=== PATIENT | male | born 1995 | race American Indian/Alaskan Native ===

== ENCOUNTER 2019-11-20 13:19 | Emergency (ER) | payer SELFPAY ==
[2019-11-20 13:37] VITALS: BP 154/76
[2019-11-20] MEDS ORDERED: HYOSCYAMINE SUBL 0.125 MG TAB SL ONE (14:16)
[2019-11-20] MEDS ORDERED: ONDANSETRON 4 MG ODT TAB PO STA (14:16)
[2019-11-20] MEDS ORDERED: ALUM-MAG HYDROXIDE-SIMETHICONE 200-200-20MG/5ML ORAL LIQD 30 ML PO STA (14:16)
[2019-11-20 14:37] LABS: Basophils % (Auto) 0.1 % (0.0-1.8); Hematocrit 46.5 % (35.5-45.6); Hemoglobin 15.3 gm/dl (11.8-15.2); Lymphocytes # (Auto) 0.6 K/mm3 (1.2-5.4); Mean Corpuscular HGB Conc 33 % (32-34); Mean Corpuscular Volume 94 fl (84-94); Monocytes # (Auto) 0.5 K/mm3 (0.0-0.8); Monocytes % (Auto) 5.4 % (0.0-7.3); Platelet Count 152 K/mm3 (140-440); Red Blood Count 4.97 M/mm3 (3.65-5.03); Red Cell Distribution Width 14.4 % (13.2-15.2)
[2019-11-20 15:00] LABS: Alanine Aminotransferase 56 units/L (7-56); Albumin 4.7 g/dL (3.9-5); BUN/Creatinine Ratio 14; Blood Urea Nitrogen 14 mg/dL (9-20); Calcium 10.1 mg/dL (8.4-10.2); Hemolysis Index 51
--- NOTE | 2019-11-20 15:04 | Emergency Department Report ---
ED Abdominal Pain HPI - General Chief Complaint: Abdominal Pain Stated Complaint: N/V/ABD PAIN Time Seen by Provider: 11/20/19 14:16 Source: patient, EMS Mode of arrival: Wheelchair Limitations: No Limitations - History of Present Illness Initial Comments: 24-year-old [place] male presents emergency department complaining of generalized abdominal pain that radiates to the lower portion of the of the of the abdomen associated with some nausea and crampiness which began after he ate at a seafood despite having shellfish/crabs. States there is been no vomiting or or diarrhea but excessive nausea and cramping. Reports no fever, chills, sweats no chest pain or palpitation no hemoptysis no hematemesis no hematochezia reports no trauma. No pre-existing abdominal issues no previous surgeries. No dysuria no hematuria MD Complaint: abdominal pain Severity: mild, moderate Consistency: constant Improves With: nothing Context: possible food poisoning Associated Symptoms: nausea - Related Data Previous Rx's Medication Instructions Recorded Last Taken Type Famotidine [Pepcid] 40 mg PO DAILY #14 tablet 11/20/19 Unknown Rx Hyoscyamine Subl [Levsin Sl 0.125 0.125 mg SL Q6HR PRN #20 tab 11/20/19 Unknown Rx TAB] Nitrofurantoin Baraga/M-Cryst 100 mg PO Q12HR #14 capsule 11/20/19 Unknown Rx [Macrobid CAP] Ondansetron [Zofran ODT TAB] 8 mg PO Q12HR #14 tab.rapdis 11/20/19 Unknown Rx Allergies Allergy/AdvReac Type Severity Reaction Status Date / Time No Known Allergies Allergy Unverified 11/20/19 13:33 ED Review of Systems ROS: Stated complaint: N/V/ABD PAIN Other details as noted in HPI Comment: All other systems reviewed and negative ED Past Medical Hx - Past Medical History Previous Medical History?: No - Surgical History Past Surgical History?: No - Social History Smoking Status: Current Every Day Smoker Substance Use Type: None - Medications Home Medications: Home Medications Medication Instructions Recorded Confirmed Last Taken Type Famotidine [Pepcid] 40 mg PO DAILY #14 tablet 11/20/19 Unknown Rx Hyoscyamine Subl [Levsin Sl 0.125 0.125 mg SL Q6HR PRN #20 tab 11/20/19 Unknown Rx TAB] Nitrofurantoin Baraga/M-Cryst 100 mg PO Q12HR #14 capsule 11/20/19 Unknown Rx [Macrobid CAP] Ondansetron [Zofran ODT TAB] 8 mg PO Q12HR #14 tab.rapdis 11/20/19 Unknown Rx ED Physical Exam - General Limitations: No Limitations General appearance: alert, in no apparent distress - Head Head exam: Present: atraumatic, normocephalic - Eye Eye exam: Present: normal appearance - ENT ENT exam: Present: mucous membranes moist - Neck Neck exam: Present: normal inspection - Respiratory Respiratory exam: Present: normal lung sounds bilaterally. Absent: respiratory distress - Cardiovascular Cardiovascular Exam: Present: regular rate, normal rhythm. Absent: systolic murmur, diastolic murmur, rubs, gallop - GI/Abdominal GI/Abdominal exam: Present: soft, tenderness, normal bowel sounds, other (No tenderness to McBurney's point, no Rovsing, no Hernandez Reza, no Soares sign, abdomen is soft) - Rectal Rectal exam: Present: deferred - Extremities Exam Extremities exam: Present: normal inspection - Back Exam Back exam: Present: normal inspection - Neurological Exam Neurological exam: Present: alert, oriented X3 - Psychiatric Psychiatric exam: Present: normal affect, normal mood - Skin Skin exam: Present: warm, dry, intact, normal color. Absent: rash ED Course Vital Signs 11/20/19 13:33 Temperature 97.6 F Pulse Rate 68 Respiratory 20 Rate Blood Pressure 154/76 O2 Sat by Pulse 96 Oximetry ED Medical Decision Making - Lab Data Result diagrams: 11/20/19 14:11 11/20/19 14:11 - Medical Decision Making This patient presents with abdominal pain of unclear etiology. Their evaluation has not identified a emergent etiology for the abdominal pain. Specifically, given the very benign exam, normal laboratory studies, and lack of significant risk factors, I have a very low suspicion for appendicitis, ischemic bowel, bowel perforation, or any other life threatening disease. I have discussed with the patient the level of uncertainty with undifferentiated abdominal pain and clearly explained the need to follow-up as noted on the discharge instructions, or return to the Emergency Department immediately if the pain worsens, develops fever, persistent and uncontrollable vomiting, or for any new symptoms or concerns. I discussed with the patient that this presentation today for abdominal pain could represent a significant risk for an acute abdominal process. He reports a significant improvement in his symptoms with the me dication given and is comfortable with discharge and follow-up. Although the tests in the ED were essentially normal, there is still a possibility of a process such as appendicitis, diverticulitis, cholecystitis, ulcer, early bowel obstruction, mesenteric ischemia, kidney stone, or even kidney infection which could subsequently cause disability or . The patient understands that they must return within 24 hours for a recheck or see their physician within 24 hours for re-exam due to the possibility of significant surgical or medical process. Urinalysis showed increased white blood cells will add on antibiotic in case there is a evolving infection Mr. Aleman states that there is no concern of his for an STD Critical care attestation.: If time is entered above; I have spent that time in minutes in the direct care of this critically ill patient, excluding procedure time. ED Disposition Clinical Impression: Abdominal pain Disposition: DC-01 TO HOME OR SELFCARE Is pt being admited?: No Does the pt Need Aspirin: No Condition: Stable Instructions: Food Poisoning (ED), Gastroenteritis (ED), Abdominal Pain (ED) Prescriptions: Hyoscyamine Subl [Levsin Sl 0.125 TAB] 0.125 mg SL Q6HR PRN #20 tab PRN Reason: abdominal cramps and spasms Nitrofurantoin Baraga/M-Cryst [Macrobid CAP] 100 mg PO Q12HR #14 capsule Famotidine [Pepcid] 40 mg PO DAILY #14 tablet Ondansetron [Zofran ODT TAB] 8 mg PO Q12HR #14 tab.[email or web address] Referrals: MICHAEL ANDRE MD [Primary Care Provider] - 3-5 Days DELMER PUTNAM MD [Staff Physician] - 3-5 Days
[2019-11-20 15:37] LABS: Bilirubin,Urine NEG (Negative); Blood,Urine NEG (Negative); Color,Urine Yellow (Yellow); Mucus,Urine 3+ /HPF; Urobilinogen,Urine < 2.0 mg/dL (<2.0)
== END 2019-11-20 16:16 | disposition home or self-care (01) ==
LOC: ED 13:19
DX: R10.84 Generalized abdominal pain (principal); R11.0 Nausea; F17.200 Nicotine dependence, unspecified, uncomplicated
CPT/HCPCS: 36415; 80053; 81001; 83690; 85025; 87086; Q0162